=== PATIENT | female | born 2000 | race African-American/Black ===

== ENCOUNTER 2019-12-03 16:00 | Emergency (ER) | payer MEDICAID ==
[~2019-12-03] VITALS: Ht 160 cm; Wt 71.8 kg
[2019-12-03 16:21] VITALS: BP 143/92; Ht 160 cm; Wt 71.8 kg
== END 2019-12-03 18:16 | disposition home or self-care (01) ==
LOC: D.ER 16:00
DX: M67.431 Ganglion, right wrist (principal)

== ENCOUNTER 2020-03-29 14:29 | Emergency (ER) | payer MEDICAID ==
[~2020-03-29] VITALS: Ht 160 cm; Wt 73.6 kg
[2020-03-29 14:47] VITALS: Ht 160 cm; Wt 73.6 kg
[2020-03-29 16:50] VITALS: BP 117/79
== END 2020-03-29 16:51 | disposition home or self-care (01) ==
LOC: D.ER 14:29
DX: M25.531 Pain in right wrist (principal); M25.562 Pain in left knee

== ENCOUNTER 2020-06-24 00:09 | Emergency (ER) | payer MEDICAID ==
[~2020-06-24] VITALS: Ht 160 cm; Wt 69.5 kg
[2020-06-24 00:18] VITALS: BP 133/74; Ht 160 cm; Wt 69.5 kg
[2020-06-24] MEDS ORDERED: OMNICEF300 MG PO (00:54)
== END 2020-06-24 01:20 | disposition home or self-care (01) ==
LOC: D.ER 00:09
DX: H66.92 Otitis media, unspecified, left ear (principal); H92.02 Otalgia, left ear

== ENCOUNTER 2020-08-25 19:35 | Emergency (ER) | payer MEDICAID ==
[~2020-08-25] VITALS: Ht 160 cm; Wt 65.5 kg
[~2020-08-25 19:35] MED LIST: OMNICEF300 MG PO
[2020-08-25 19:56] VITALS: BP 128/68; Ht 160 cm; Wt 65.5 kg
[2020-08-25 20:15] LABS: BILIRUBIN NEGATIVE (NEGATIVE); KETONE NEGATIVE (NEGATIVE); NITRITE NEGATIVE (NEGATIVE); UROBILINOGEN NORMAL mg/dL (< 2)
[2020-08-25 21:03] LABS: HCG URINE NEGATIVE (NEGATIVE)
[2020-08-25 21:05] LABS: BASOPHILS 0.4 % (0-2); EOSINOPHILS 4.2 % (0-7); HEMATOCRIT 39.4 % (36.0-48.0); HEMOGLOBIN 12.7 g/dL (12-16); IMMATURE GRANULOCYTES 0.1 % (0-5); LYMPHOCYTES 31.6 % (15-50); MCH 30.2 pg (26.0-34.0); MCHC 32.2 g/dL (31.0-37.0); MCV 93.6 fL (80.0-100.0); MEAN PLATELET VOLUME 10.1 fL (7.4-10.4); MONOCYTES 10.6 % (2-11); NEUTROPHILS 53.1 % (40-80); PLATELET COUNT 208 10x3/uL (130-400); RBC 4.21 10x6/uL (4.00-5.40); WBC 7.4 10x3/uL (4.8-10.8)
[2020-08-25 21:16] LABS: CALC OSMOLALITY 282 mosm/kg (275-300); CALCIUM 8.7 mg/dL (8.5-10.1); CARBON DIOXIDE 28.3 mmol/L (21.0-32.0); CHLORIDE - SERUM 106 mmol/L (98-107); CREATININE - SERUM 0.8 mg/dL (0.6-1.3); GLUCOSE 90 mg/dL (74-106); POTASSIUM - SERUM 3.8 mmol/L (3.5-5.1); SODIUM 142 mmol/L (136-145); UREA NITROGEN 13 mg/dL (7-18); eGFR NON AFRICAN AMERICAN > 90 mL/min (90-120)
[2020-08-25 21:22] LABS: ALBUMIN 3.7 g/dL (3.4-5.0); ALKALINE PHOSPHATASE 76 U/L (30-120); BILIRUBIN - TOTAL 0.25 mg/dL (0.2-1.3); LIPASE 414 U/L (73-393); PROTEIN - SERUM 7.6 g/dL (6.4-8.2)
[2020-08-25 21:35] LABS: ALT (SGPT) 10 U/L (10-68)
== END 2020-08-25 22:20 | disposition home or self-care (01) ==
LOC: D.ER 19:35
PROVIDERS: Family Medicine
DX: K29.70 Gastritis, unspecified, without bleeding (principal); R10.32 Left lower quadrant pain